=== PATIENT | female | born 1965 | race Two or more races ===

== ENCOUNTER 2021-11-12 19:31 | Emergency (ER) | payer OTHER ==
[~2021-11-12] VITALS: Ht 160 cm; Wt 68.5 kg
[2021-11-12] MEDS ORDERED: MIRALAX17 GM (20:48)
[2021-11-12] MEDS ORDERED: OSTERA TABLET1 EACH (20:48)
[2021-11-12] MEDS ORDERED: ZITHROMAX500 MG PO (22:24)
[2021-11-12] MEDS ORDERED: TUSNEL LIQUID178 ML PO (22:24)
[2021-11-12] MEDS ORDERED: PROAIR HFA8.5 GM IH (22:24)
== END 2021-11-12 22:31 | disposition home or self-care (01) ==
LOC: ER 19:31
DX: U07.1 COVID-19 (principal)

== ENCOUNTER 2022-02-04 06:30 | Day surgery (SDC) | payer OTHER ==
[~2022-02-04 06:30] MED LIST: MIRALAX17 GM; OSTERA TABLET1 EACH; PROAIR HFA8.5 GM IH; TUSNEL LIQUID178 ML PO; ZITHROMAX500 MG PO
== END 2022-02-04 11:30 | disposition home or self-care (01) ==
LOC: AMB-ENDOS 06:30
PROVIDERS: ATTEND Colon & Rectal Surgery
DX: D12.3 Benign neoplasm of transverse colon (principal); D12.2 Benign neoplasm of ascending colon; Z20.822 Contact with and (suspected) exposure to COVID-19; K57.30 Diverticulosis of large intestine without perforation or abscess without bleeding; K59.09 Other constipation

== ENCOUNTER 2024-10-23 11:00 | Outpatient (CLI) | payer OTHER | END 2024-10-23 11:02 | disposition home or self-care (01) | LOC: SONOGRAMA 11:00 | PROVIDERS: ATTEND Pathology Anatomic Pathology | DX: D34 Benign neoplasm of thyroid gland (principal); E06.3 Autoimmune thyroiditis; E07.89 Other specified disorders of thyroid; E04.2 Nontoxic multinodular goiter ==